=== PATIENT | female | born 1985 | race Caucasian/White ===

== ENCOUNTER 2017-12-19 17:40 | Emergency (ER) | payer OTHER ==
--- NOTE | 2017-12-19 18:31 | CPEKG ---
Heart Rate: 68 RR Interval: 882 P-R Interval: 148 QRSD Interval: 72 QT Interval: 408 QTC Interval: 434 P Beltrami: 54 QRS Beltrami: 67 T Wave Beltrami: -8 EKG Severity - NORMAL ECG - EKG Impression: SINUS RHYTHM Electronically Signed By: Chepe Grullon 22-Dec-2017 05:52:29
--- NOTE | 2017-12-19 18:36 | EDPHY ---
H & P Time Seen by Provider: 12/19/17 18:06 HPI/ROS: CHIEF COMPLAINT: Chest pain HISTORY OF PRESENT ILLNESS: 32-year-old female presenting to the emergency department reporting intermittent episodes of chest discomfort which has been present for about 2 weeks. Pain is described as just to the left of the sternum. Discomfort is also felt in the back. Discomfort is present for anywhere between minutes to hours each day. Does not appear to have any clear exacerbating or relieving factors. Not associated with nausea, vomiting, diaphoresis, or sweating. Patient did notice that she had some discomfort in her arm pit yesterday. She also has been having palpitations at night which are very brief, fluttering, and do not appear to be associated with the chest discomfort. She denies any history of asthma, reactive airways disease, chest trauma, or reflux. Denies any cold or cough symptoms. Denies any fevers or chills. No lightheadedness, dizziness, vomiting, or diarrhea. Patient took a baby aspirin today. REVIEW OF SYSTEMS: Aside from elements discussed in the HPI, a comprehensive 10-point review of systems was reviewed and is negative. PAST MEDICAL HISTORY: Patient denies. Specifically no history of hypertension , coronary artery disease, diabetes, high cholesterol. No family history of early coronary artery disease. SOCIAL HISTORY: Nonsmoker. Denies illicit drug use. Works as a physical therapist. VITAL SIGNS Reviewed by me. GENERAL: Well-developed, well-nourished, resting comfortably in no respiratory distress. Intermittently pressing on her left chest wall. No reproducible pain. HEENT: Atraumatic. Eyes: No icterus, no injection. Mouth: moist mucous membranes. No erythema or lesions. Neck: supple with no adenopathy. LUNGS: Clear to auscultation bilaterally, no wheezes, rhonchi or rales. CARDIAC: Regular rate and rhythm, no rubs, murmurs or gallops. ABDOMEN: Soft, nontender, nondistended, bowel sounds normal. BACK: No CVA tenderness. EXTREMITIES: No trauma. No edema. Range of motion is normal throughout. NEURO: Alert and oriented, grossly nonfocal. SKIN: Warm and dry, no rash. PSYCHIATRIC: Normal mentation, no agitation. Smoking Status: Never smoked Constitutional: Initial Vital Signs Temperature (C) 36.8 C 12/19/17 18:03 Heart Rate 76 12/19/17 18:03 Respiratory Rate 14 12/19/17 18:03 Blood Pressure 111/68 12/19/17 18:03 O2 Sat (%) 99 12/19/17 18:03 O2 Delivery Mode Room Air Allergies/Adverse Reactions: Penicillins Allergy (Verified 04/10/14 17:57) Home Medications: Medication Instructions Recorded NK [No Known Home Meds] 12/19/17 Medical Decision Making - Diagnostics EKG Interpretation: 12-LEAD EKG: Please see the full report in [facility]. My interpretation: Sinus rhythm, no ischemic changes. Imaging Results: Imaging Impressions Chest X-Ray 12/19/17 18:23 Impression: No acute pulmonary disease. ED Course/Re-evaluation: 32-year-old female with intermittent episodes of chest discomfort, with radiation into the armpit yesterday. No clear exacerbating or relieving factors. No coronary artery disease risk factors. Evaluation emergency department included an EKG with no acute ischemic changes. Chest x-ray was normal. Troponin was negative. Chemistries demonstrate sodium which is low at 129, potassium which is low at 3 , chloride which is low at 96. I discussed these findings with the patient. It is somewhat unclear to me what is causing these mild electrolyte abnormalities. I discussed providing normal saline to the patient as well as potassium by mouth with a recheck of her electrolytes. She would prefer to be discharged home and states she will drink some Gatorade and follow-up. She did receive potassium chloride 40 mEq by mouth prior to discharge. Patient has an appointment with home furnishings sales representative in 2 weeks. I encouraged her to follow up with the home furnishings sales representative. She does not have a primary care physician and she was given referral bowl to [facility] here at the [facility] which she requested as well as given referral to Dr. Sherman Bello, on-call for unassigned patients. Differential Diagnosis: After history and physical examination, the differential for chest pain was considered, including but not limited to, myocardial ischemia, acute coronary syndrome, pulmonary embolus, chest wall pain, pleural inflammation and pulmonary infectious causes. Differential diagnoses for the patient's sensation of palpitations was considered including but not limited to sinus tachycardia, PACs, PVCs, SVT, atrial fibrillation, atrial flutter, anxiety, panic attack. - Data Points Laboratory Results: 12/19/17 12/19/17 19:02 18:47 POC Sodium 129 mEq/L L mEq/L (135-145) POC Potassium 3.0 mEq/L L mEq/L (3.3-5.0) POC Chloride 96.0 mEq/L L mEq/L (97-110) POC Total CO2 24 mEq/L mEq/L (22-31) POC BUN 11 mg/dL mg/dL (7-23) POC Creatinine 0.7 mg/dL mg/dL (0.6-1.0) POC Glucose 93 mg/dL mg/dL (70-100) POC Calcium 9.1 mg/dL mg/dL (8.5-10.4) POC Troponin I 0.00 ng/mL ng/mL (0.00-0.08) Medications Given: Discontinued Medications Albuterol (Proventil Neb) 3 ml IH EDNOW ONE Stop: 12/19/17 19:17 Last Admin: 12/19/17 19:21 Dose: 3 ml Sodium Chloride (Ns) 1,000 mls @ 0 mls/hr IV ONCE ONE; Wide Open PRN Reason: Protocol Stop: 12/19/17 19:31 Last Admin: 12/19/17 19:39 Dose: Not Given Potassium Chloride (Potassium Chloride Oral Liquid) 40 meq PO EDNOW ONE Stop: 12/19/17 19:42 Last Admin: 12/19/17 19:45 Dose: Not Given Potassium Chloride (Klor Packets) 40 meq PO EDNOW ONE Stop: 12/19/17 19:45 Last Admin: 12/19/17 19:49 Dose: 40 meq Point of Care Test Results: Chemistry 12/19/17 12/19/17 19:02 18:47 POC Sodium 129 mEq/L L mEq/L (135-145) POC Potassium 3.0 mEq/L L mEq/L (3.3-5.0) POC Chloride 96.0 mEq/L L mEq/L (97-110) POC Total CO2 24 mEq/L mEq/L (22-31) POC BUN 11 mg/dL mg/dL (7-23) POC Creatinine 0.7 mg/dL mg/dL (0.6-1.0) POC Glucose 93 mg/dL mg/dL (70-100) POC Calcium 9.1 mg/dL mg/dL (8.5-10.4) POC Troponin I 0.00 ng/mL ng/mL (0.00-0.08) Departure - Departure Disposition: Home, Routine, Self-Care Clinical Impression: Palpitations, Hyponatremia, Hypokalemia Chest pain Qualifiers: Chest pain type: unspecified Qualified Code(s): R07.9 - Chest pain, unspecified Condition: Good Instructions: Chest Pain (ED), Hyponatremia (ED), Hypokalemia (ED), Heart Palpitations (ED) Additional Instructions: Please be sure you drink plenty of fluid, eat a well-balanced diet, and follow up with your primary care physician for recheck of your electrolytes. Follow up with Cardiology as previously scheduled. Follow up with the primary care physician. You been given referral below. Referrals: NONE *PRIMARY CARE P,. [Primary Care Provider] - As per Instructions Nya Hartmann DO [Doctor of Osteopathy] - As per Instructions (Dr. Hartmann is a physician at [facility] in this building.) Sherman Bello DO [Doctor of Osteopathy] - As per Instructions (Dr. Bello is on-call for unassigned patients.)
[2017-12-19] MEDS ORDERED: ALBUTEROL 3 ML DEYVIAL IH ONE (19:16)
[2017-12-19] MEDS ORDERED: NS 1,000 ML IV ONE (19:30)
[2017-12-19] MEDS ORDERED: POTASSIUM CL 20 MEQ/15 ML UDCUP PO ONE (19:41)
[2017-12-19] MEDS ORDERED: POTASSIUM CL 20 MEQ PKT PO ONE (19:44)
[2017-12-19 20:09] VITALS: BP 105/61
== END 2017-12-19 20:10 | disposition home or self-care (01) ==
LOC: CED 17:40
DX: R07.9 Chest pain, unspecified (principal); R00.2 Palpitations; E87.1 Hypo-osmolality and hyponatremia; E87.6 Hypokalemia
CPT/HCPCS: 71046-PO; 80048-PO; 84484-PO; J7613